=== PATIENT | male | born 1995 | race American Indian/Alaskan Native ===

== ENCOUNTER 2018-06-18 11:56 | Emergency (ER) | payer MEDICAID ==
[2018-06-18 12:06] VITALS: BP 144/90
[2018-06-18] MEDS ORDERED: MOTRIN PO ONE (12:50)
[2018-06-18] MEDS ORDERED: TESSALON PERLES PO ONE (12:50)
--- NOTE | 2018-06-18 12:52 | Emergency Department Report ---
- General Chief Complaint: Upper Respiratory Infection Stated Complaint: COUGHING RUNNY NOSE/CONGESTION Time Seen by Provider: 06/18/18 12:50 Source: patient Mode of arrival: Ambulatory Limitations: No Limitations - History of Present Illness Initial Comments: This is a 23-year-old male nontoxic, well nourished in appearance, no acute signs of distress presents to the ED with c/o of productive cough, rhinorrhea, nasal congestion x1 week. Patient describes productive cough as yellow mucus production. Patient denies any sick contact. Patient denies any recent travels , long car, recent hospital stays. Patient denies any calf pain or calf tenderness. Patient denies any chest pain, short of breath, fever, chills, nausea, vomiting, hemoptysis, numbness, tingling, headache or stiff neck. Patient denies any allergies or PMH. MD Complaint: cough, rhinorrhea, nasal congestion -: week(s) (1) Severity: mild Severity scale (0 -10): 0 Improves With: nothing Worsens With: nothing Associated Symptoms: rhinorrhea, nasal congestion, cough. denies: fever, chills , myalgias, diaphoresis, headache, sore throat, stiff neck, chest pain, shortness of breath, abdominal pain, nausea, vomiting, diarrhea, dysuria, rash, confusion, right sweats, weight loss, epistaxis, hoarseness, ear pain Treatments Prior to Arrival: none - Related Data Previous Rx's Medication Instructions Recorded Last Taken Type Azithromycin [Zithromax Z-BETH] 250 mg PO DAILY #1 pkg 12/15/14 Unknown Rx Loratadine [Claritin] 10 mg PO DAILY #30 tablet 12/15/14 Unknown Rx Promethazine /Codeine 5 ml PO Q6H PRN #150 udc 12/15/14 Unknown Rx [Phenergan/Codeine 6.25-10 mg/5 ml] predniSONE [Deltasone] 50 mg PO QDAY #5 tab 12/15/14 Unknown Rx Cyclobenzaprine [Flexeril] 10 mg PO TID PRN #15 tablet 06/03/16 Unknown Rx Cephalexin [Keflex] 500 mg PO BID #20 capsule 09/16/16 Unknown Rx Ibuprofen [Motrin 800 MG tab] 800 mg PO Q8HR PRN #15 tablet 09/16/16 Unknown Rx Azithromycin [Zithromax Z-BETH] 250 mg PO DAILY #6 tablet 06/18/18 Unknown Rx Benzonatate [Tessalon Perle] 100 mg PO Q8H PRN #20 capsule 06/18/18 Unknown Rx Ibuprofen [Motrin] 600 mg PO Q8H PRN #30 tablet 06/18/18 Unknown Rx Prednisone [predniSONE 10 mg 10 mg PO .TAPER #1 tab.ds.pk 06/18/18 Unknown Rx (6-Day Pack, 21 Tabs)] Allergies Allergy/AdvReac Type Severity Reaction Status Date / Time No Known Allergies Allergy Verified 06/18/18 12:04 ED Review of Systems ROS: Stated complaint: COUGHING RUNNY NOSE/CONGESTION Other details as noted in HPI Constitutional: denies: chills, fever Eyes: denies: eye pain, eye discharge, vision change ENT: denies: ear pain, throat pain Respiratory: cough. denies: shortness of breath, wheezing Cardiovascular: denies: chest pain, palpitations Endocrine: no symptoms reported Gastrointestinal: denies: abdominal pain, nausea, vomiting, diarrhea Genitourinary: denies: urgency, dysuria Musculoskeletal: denies: back pain, joint swelling, arthralgia Skin: denies: rash, lesions Neurological: denies: headache, weakness, paresthesias Psychiatric: denies: anxiety, depression Hematological/Lymphatic: denies: easy bleeding, easy bruising ED Past Medical Hx - Past Medical History Previous Medical History?: No - Surgical History Past Surgical History?: No - Social History Smoking Status: Never Smoker Substance Use Type: None - Medications Home Medications: Home Medications Medication Instructions Recorded Confirmed Last Taken Type Azithromycin [Zithromax Z-BETH] 250 mg PO DAILY #1 pkg 12/15/14 Unknown Rx Loratadine [Claritin] 10 mg PO DAILY #30 tablet 12/15/14 Unknown Rx Promethazine /Codeine 5 ml PO Q6H PRN #150 udc 12/15/14 Unknown Rx [Phenergan/Codeine 6.25-10 mg/5 ml] predniSONE [Deltasone] 50 mg PO QDAY #5 tab 12/15/14 Unknown Rx Cyclobenzaprine [Flexeril] 10 mg PO TID PRN #15 tablet 06/03/16 Unknown Rx Cephalexin [Keflex] 500 mg PO BID #20 capsule 09/16/16 Unknown Rx Ibuprofen [Motrin 800 MG tab] 800 mg PO Q8HR PRN #15 tablet 09/16/16 Unknown Rx Azithromycin [Zithromax Z-BETH] 250 mg PO DAILY #6 tablet 06/18/18 Unknown Rx Benzonatate [Tessalon Perle] 100 mg PO Q8H PRN #20 capsule 06/18/18 Unknown Rx Ibuprofen [Motrin] 600 mg PO Q8H PRN #30 tablet 06/18/18 Unknown Rx Prednisone [predniSONE 10 mg 10 mg PO .TAPER #1 tab.ds.pk 06/18/18 Unknown Rx (6-Day Pack, 21 Tabs)] ED Physical Exam - General Limitations: No Limitations General appearance: alert, in no apparent distress - Head Head exam: Present: atraumatic, normocephalic - Eye Eye exam: Present: normal appearance, PERRL, EOMI Pupils: Present: normal accommodation - ENT ENT exam: Present: normal exam, mucous membranes moist - Neck Neck exam: Present: normal inspection, full ROM. Absent: tenderness, meningismus, lymphadenopathy - Respiratory Respiratory exam: Present: normal lung sounds bilaterally. Absent: respiratory distress, wheezes, rales, rhonchi, stridor, chest wall tenderness, accessory muscle use, decreased breath sounds, prolonged expiratory - Cardiovascular Cardiovascular Exam: Present: regular rate, normal rhythm, normal heart sounds. Absent: bradycardia, tachycardia, irregular rhythm, systolic murmur, diastolic murmur, rubs, gallop - GI/Abdominal GI/Abdominal exam: Present: soft, normal bowel sounds. Absent: distended, tenderness, guarding, rebound, rigid, diminished bowel sounds - Rectal Rectal exam: Present: deferred - Extremities Exam Extremities exam: Present: normal inspection, full ROM, normal capillary refill. Absent: tenderness - Back Exam Back exam: Present: normal inspection, full ROM. Absent: tenderness, CVA tenderness (R), CVA tenderness (L), muscle spasm, paraspinal tenderness, vertebral tenderness, rash noted - Neurological Exam Neurological exam: Present: alert, oriented X3, normal gait - Psychiatric Psychiatric exam: Present: normal affect, normal mood - Skin Skin exam: Present: warm, dry, intact, normal color. Absent: rash ED Course Vital Signs 06/18/18 12:04 Temperature 97.9 F Pulse Rate 84 Respiratory 18 Rate Blood Pressure 144/90 O2 Sat by Pulse 100 Oximetry - Reevaluation(s) Reevaluation #1: 06/18/18 13:04 Patient is speaking in full sentences with no signs of distress noted. ED Medical Decision Making - Medical Decision Making This is a 23-year-old male that presents with bronchitis. Patient is stable and was examined by me. Chest x-ray has been obtained and dictated by radiologist with normal exam. Patient is notified of x-ray results with no questions noted. Due to patient having symptoms of upper respiratory infection and symptoms of influenza and worsening I will treat patient empirically with zpak. Patient was instructed to increase hydration, rest and take Motrin for fever episodes. Patient received motrin and tesslone perrls in the ED. Vitals stable. Patient is nonfebrile and normal heart rate. Patient was instructed Follow-up with a primary care doctor in 3-5 days or if symptoms worsen and continue return to emergency room as soon as possible. At time time of discharge, the patient does not seem toxic or ill in appearance. No acute signs of distress noted. Patient agrees to discharge treatment plan of care. No further questions noted by the patient. Critical care attestation.: If time is entered above; I have spent that time in minutes in the direct care of this critically ill patient, excluding procedure time. ED Disposition Clinical Impression: Acute bronchitis Qualifiers: Bronchitis organism: unspecified organism Qualified Code(s): J20.9 - Acute bronchitis, unspecified Disposition: DC-01 TO HOME OR SELFCARE Is pt being admited?: No Does the pt Need Aspirin: No Condition: Stable Instructions: Acute Bronchitis (ED) Additional Instructions: Follow-up with a primary care doctor in 3-5 days or if symptoms worsen and continue return to emergency room as soon as possible. Prescriptions: Azithromycin [Zithromax Z-BETH] 250 mg PO DAILY #6 tablet Benzonatate [Tessalon Perle] 100 mg PO Q8H PRN #20 capsule PRN Reason: Cough Ibuprofen [Motrin] 600 mg PO Q8H PRN #30 tablet PRN Reason: Pain Prednisone [predniSONE 10 mg (6-Day Pack, 21 Tabs)] 10 mg PO .TAPER #1 tab.ds.pk Referrals: PRIMARY CARE, [Primary Care Provider] - 3-5 Days SHELLI MEJIA MD [Staff Physician] - 3-5 Days [facility] [Outside] - 3-5 Days [facility] [Outside] - 3-5 Days Forms: Work/School Release Form(ED)
--- NOTE | 2018-06-18 15:20 | XRay Report ---
XRAY CHEST TWO VIEWS: 06/18/18 11:56:00 CLINICAL: Cough. COMPARISON: 12/15/14 FINDINGS: Normal heart and pulmonary vasculature. The lungs are normally expanded and clear.The bones and soft tissues are unremarkable. IMPRESSION: Normal chest.
== END 2018-06-18 15:41 | disposition home or self-care (01) ==
LOC: ED 11:56
DX: J20.9 Acute bronchitis, unspecified (principal)
CPT/HCPCS: 71046; 99283

== ENCOUNTER 2018-10-31 19:04 | Emergency (ER) | payer OTHER, MEDICAID ==
--- NOTE | 2018-10-31 23:39 | Emergency Department Report ---
ED ENT HPI - General Chief complaint: Upper Respiratory Infection Stated complaint: FLU LIKE SXS Time Seen by Provider: 10/31/18 23:27 Source: patient Mode of arrival: Ambulatory Limitations: No Limitations - History of Present Illness Initial comments: 23-year-old Armenian male to emergency Department for evaluation of a sore throat which was initially evaluated on [place]. He was started on amoxicillin which he has taken about 3 doses of reports the pain has not yet discontinue which is reasons for his return to the emergency department reports no worsening in symptoms. There is no dysphagia, but he does report some odynophagia. Does still have chills and coryza. No nausea, vomiting or hemoptysis. No hematemesis or hematochezia. No abdominal pain. No rashes appreciated. No ear pain, no tinnitus. MD complaint: sore throat Severity: moderate Quality: burning, aching Consistency: constant Improves with: none Worsens with: none Associated Symptoms: cough, sore throat, rhinorrhea. denies: gum swelling, hearing loss - Related Data Previous Rx's Medication Instructions Recorded Last Taken Type Azithromycin [Zithromax Z-BETH] 250 mg PO DAILY #1 pkg 12/15/14 Unknown Rx Loratadine [Claritin] 10 mg PO DAILY #30 tablet 12/15/14 Unknown Rx Promethazine /Codeine 5 ml PO Q6H PRN #150 udc 12/15/14 Unknown Rx [Phenergan/Codeine 6.25-10 mg/5 ml] predniSONE [Deltasone] 50 mg PO QDAY #5 tab 12/15/14 Unknown Rx Cyclobenzaprine [Flexeril] 10 mg PO TID PRN #15 tablet 06/03/16 Unknown Rx Cephalexin [Keflex] 500 mg PO BID #20 capsule 09/16/16 Unknown Rx Ibuprofen [Motrin 800 MG tab] 800 mg PO Q8HR PRN #15 tablet 09/16/16 Unknown Rx Azithromycin [Zithromax Z-BETH] 250 mg PO DAILY #6 tablet 06/18/18 Unknown Rx Benzonatate [Tessalon Perle] 100 mg PO Q8H PRN #20 capsule 06/18/18 Unknown Rx Ibuprofen [Motrin] 600 mg PO Q8H PRN #30 tablet 06/18/18 Unknown Rx Prednisone [predniSONE 10 mg 10 mg PO .TAPER #1 tab.ds.pk 06/18/18 Unknown Rx (6-Day Pack, 21 Tabs)] Methocarbamol [Robaxin-750] 750 mg PO Q6HR PRN #20 tablet 10/04/18 Unknown Rx Naproxen [Naprosyn] 500 mg PO BID PRN #20 tablet 10/04/18 Unknown Rx Amoxicillin [Amoxicillin TAB] 875 mg PO BID #20 tablet 10/29/18 Unknown Rx Chlorhexidine Mouthwash [Peridex] 15 ml MM BID #1 bottle 10/29/18 Unknown Rx Ibuprofen [Motrin] 600 mg PO Q8H PRN #20 tablet 10/29/18 Unknown Rx Desloratadine/Pseudoephedrine 1 each PO BID #10 tbmp.12hr 10/31/18 Unknown Rx [Clarinex-D 12 Hour Tablet] guaiFENesin/CODEINE [Robitussin AC] 5 ml PO Q6H PRN #120 ml 10/31/18 Unknown Rx Allergies Allergy/AdvReac Type Severity Reaction Status Date / Time No Known Allergies Allergy Verified 06/18/18 12:04 ED Dental HPI - General Chief complaint: Upper Respiratory Infection Stated complaint: FLU LIKE SXS Time Seen by Provider: 10/31/18 23:27 Source: patient Mode of arrival: Ambulatory Limitations: No Limitations - Related Data Previous Rx's Medication Instructions Recorded Last Taken Type Azithromycin [Zithromax Z-BETH] 250 mg PO DAILY #1 pkg 12/15/14 Unknown Rx Loratadine [Claritin] 10 mg PO DAILY #30 tablet 12/15/14 Unknown Rx Promethazine /Codeine 5 ml PO Q6H PRN #150 udc 12/15/14 Unknown Rx [Phenergan/Codeine 6.25-10 mg/5 ml] predniSONE [Deltasone] 50 mg PO QDAY #5 tab 12/15/14 Unknown Rx Cyclobenzaprine [Flexeril] 10 mg PO TID PRN #15 tablet 06/03/16 Unknown Rx Cephalexin [Keflex] 500 mg PO BID #20 capsule 09/16/16 Unknown Rx Ibuprofen [Motrin 800 MG tab] 800 mg PO Q8HR PRN #15 tablet 09/16/16 Unknown Rx Azithromycin [Zithromax Z-BETH] 250 mg PO DAILY #6 tablet 06/18/18 Unknown Rx Benzonatate [Tessalon Perle] 100 mg PO Q8H PRN #20 capsule 06/18/18 Unknown Rx Ibuprofen [Motrin] 600 mg PO Q8H PRN #30 tablet 06/18/18 Unknown Rx Prednisone [predniSONE 10 mg 10 mg PO .TAPER #1 tab.ds.pk 06/18/18 Unknown Rx (6-Day Pack, 21 Tabs)] Methocarbamol [Robaxin-750] 750 mg PO Q6HR PRN #20 tablet 10/04/18 Unknown Rx Naproxen [Naprosyn] 500 mg PO BID PRN #20 tablet 10/04/18 Unknown Rx Amoxicillin [Amoxicillin TAB] 875 mg PO BID #20 tablet 10/29/18 Unknown Rx Chlorhexidine Mouthwash [Peridex] 15 ml MM BID #1 bottle 10/29/18 Unknown Rx Ibuprofen [Motrin] 600 mg PO Q8H PRN #20 tablet 10/29/18 Unknown Rx Desloratadine/Pseudoephedrine 1 each PO BID #10 tbmp.12hr 10/31/18 Unknown Rx [Clarinex-D 12 Hour Tablet] guaiFENesin/CODEINE [Robitussin AC] 5 ml PO Q6H PRN #120 ml 10/31/18 Unknown Rx Allergies Allergy/AdvReac Type Severity Reaction Status Date / Time No Known Allergies Allergy Verified 06/18/18 12:04 ED Review of Systems ROS: Stated complaint: FLU LIKE SXS Other details as noted in HPI Constitutional: denies: chills, fever Eyes: denies: eye pain, eye discharge, vision change ENT: throat pain. denies: ear pain Respiratory: denies: cough, shortness of breath, wheezing Cardiovascular: denies: chest pain, palpitations Endocrine: no symptoms reported Gastrointestinal: denies: abdominal pain, nausea, diarrhea Genitourinary: denies: urgency, dysuria Musculoskeletal: denies: back pain, joint swelling, arthralgia Skin: denies: rash, lesions Neurological: denies: headache, weakness, paresthesias Psychiatric: denies: anxiety, depression Hematological/Lymphatic: denies: easy bleeding, easy bruising ED Past Medical Hx - Past Medical History Previous Medical History?: No - Social History Smoking Status: Never Smoker Substance Use Type: None - Medications Home Medications: Home Medications Medication Instructions Recorded Confirmed Last Taken Type Azithromycin [Zithromax Z-BETH] 250 mg PO DAILY #1 pkg 12/15/14 Unknown Rx Loratadine [Claritin] 10 mg PO DAILY #30 tablet 12/15/14 Unknown Rx Promethazine /Codeine 5 ml PO Q6H PRN #150 udc 12/15/14 Unknown Rx [Phenergan/Codeine 6.25-10 mg/5 ml] predniSONE [Deltasone] 50 mg PO QDAY #5 tab 12/15/14 Unknown Rx Cyclobenzaprine [Flexeril] 10 mg PO TID PRN #15 tablet 06/03/16 Unknown Rx Cephalexin [Keflex] 500 mg PO BID #20 capsule 09/16/16 Unknown Rx Ibuprofen [Motrin 800 MG tab] 800 mg PO Q8HR PRN #15 tablet 09/16/16 Unknown Rx Azithromycin [Zithromax Z-BETH] 250 mg PO DAILY #6 tablet 06/18/18 Unknown Rx Benzonatate [Tessalon Perle] 100 mg PO Q8H PRN #20 capsule 06/18/18 Unknown Rx Ibuprofen [Motrin] 600 mg PO Q8H PRN #30 tablet 06/18/18 Unknown Rx Prednisone [predniSONE 10 mg 10 mg PO .TAPER #1 tab.ds.pk 06/18/18 Unknown Rx (6-Day Pack, 21 Tabs)] Methocarbamol [Robaxin-750] 750 mg PO Q6HR PRN #20 tablet 10/04/18 Unknown Rx Naproxen [Naprosyn] 500 mg PO BID PRN #20 tablet 10/04/18 Unknown Rx Amoxicillin [Amoxicillin TAB] 875 mg PO BID #20 tablet 10/29/18 Unknown Rx Chlorhexidine Mouthwash [Peridex] 15 ml MM BID #1 bottle 10/29/18 Unknown Rx Ibuprofen [Motrin] 600 mg PO Q8H PRN #20 tablet 10/29/18 Unknown Rx Desloratadine/Pseudoephedrine 1 each PO BID #10 tbmp.12hr 10/31/18 Unknown Rx [Clarinex-D 12 Hour Tablet] guaiFENesin/CODEINE [Robitussin AC] 5 ml PO Q6H PRN #120 ml 10/31/18 Unknown Rx ED Physical Exam - General Limitations: No Limitations General appearance: alert, in no apparent distress - Head Head exam: Present: atraumatic, normocephalic - Eye Eye exam: Present: normal appearance, PERRL, other - ENT ENT exam: Present: mucous membranes moist, other (exes erythematous with some swelling to the right tonsils and there is notable exudate on the right side. No evidence of any abscesses appreciated. Tongue and uvula are midline. Voice is normal. No drooling.) - Neck Neck exam: Present: normal inspection. Absent: tenderness - Respiratory Respiratory exam: Present: normal lung sounds bilaterally. Absent: respiratory distress, wheezes, rales, rhonchi, chest wall tenderness, accessory muscle use, decreased breath sounds, prolonged expiratory - Cardiovascular Cardiovascular Exam: Present: regular rate, normal rhythm. Absent: systolic murmur, diastolic murmur, rubs, gallop - GI/Abdominal GI/Abdominal exam: Present: soft, normal bowel sounds - Rectal Rectal exam: Present: deferred - Extremities Exam Extremities exam: Present: normal inspection - Back Exam Back exam: Present: normal inspection - Neurological Exam Neurological exam: Present: alert, oriented X3 - Psychiatric Psychiatric exam: Present: normal affect, normal mood - Skin Skin exam: Present: warm, dry, intact, normal color. Absent: rash ED Course Vital Signs 10/31/18 19:16 Temperature 98.4 F Pulse Rate 92 H Respiratory 18 Rate Blood Pressure 165/86 O2 Sat by Pulse 98 Oximetry ED Medical Decision Making - Medical Decision Making I discussed with patient the normal progression of the disease processes in the proper utilization of antibodies. I offered him a Bicillin injection, which she refused. He requested to have just medications to help with some of the symptoms he was experiencing. He has been taking the amoxicillin only 3 doses and used oral mouth rinse once or twice as well. - Differential Diagnosis mono, strep pharyngitis, malignancy, reflux, viral syndrome Critical care attestation.: If time is entered above; I have spent that time in minutes in the direct care of this critically ill patient, excluding procedure time. ED Disposition Clinical Impression: Pharyngitis Disposition: DC-01 TO HOME OR SELFCARE Is pt being admited?: No Does the pt Need Aspirin: No Condition: Stable Instructions: Pharyngitis (ED), Tonsillitis (ED) Prescriptions: Desloratadine/Pseudoephedrine [Clarinex-D 12 Hour Tablet] 1 each PO BID #10 tbmp.12hr guaiFENesin/CODEINE [Robitussin AC] 5 ml PO Q6H PRN #120 ml PRN Reason: Cough Referrals: [facility] [Provider Group] - 3-5 Days
[2018-11-01 00:43] VITALS: BP 145/78
== END 2018-11-01 00:42 | disposition home or self-care (01) ==
LOC: ED 19:04
DX: J02.9 Acute pharyngitis, unspecified (principal)
CPT/HCPCS: 99282

== ENCOUNTER 2021-09-06 16:08 | Emergency (ER) | payer MEDICAID, OTHER ==
[2021-09-06 19:54] LABS: Hematocrit 46.5 % (35.5-45.6); Hemoglobin 15.1 gm/dl (11.8-15.2); Mean Corpuscular HGB Conc 32 % (32-34); Mean Corpuscular Volume 86 fl (84-94); Platelet Count 194 K/mm3 (140-440); Red Blood Count 5.44 M/mm3 (3.65-5.03); Red Cell Distribution Width 14.2 % (13.2-15.2)
[2021-09-06 20:07] LABS: Alanine Aminotransferase 30 units/L (7-56); Albumin 4.1 g/dL (3.9-5); BUN/Creatinine Ratio 10; Blood Urea Nitrogen 8 mg/dL (9-20); Calcium 8.7 mg/dL (8.4-10.2); Hemolysis Index 14
--- NOTE | 2021-09-06 20:55 | Emergency Department Report ---
ED N/V/D HPI - General Chief complaint: Nausea/Vomiting/Diarrhea Stated complaint: POSSIBLE STOMACH VIRUS Time Seen by Provider: 09/06/21 18:51 Source: patient Mode of arrival: Ambulatory Limitations: No Limitations - History of Present Illness Associated Abdominal Pain: No Radiation: none Severity: mild Quality: dull Consistency: constant Improves with: none Worsens with: none Context: possible food poisoning Associated Symptoms: nausea/vomiting. denies: cough, diaphoresis, loss of appetite, syncope, weakness - Related Data Previous Rx's Medication Instructions Recorded Last Taken Type Azithromycin [Zithromax Z-BETH] 250 mg PO DAILY #1 pkg 12/15/14 Unknown Rx Loratadine (Nf) [Claritin] 10 mg PO DAILY #30 tablet 12/15/14 Unknown Rx Promethazine /Codeine 5 ml PO Q6H PRN #150 udc 12/15/14 Unknown Rx [Phenergan/Codeine 6.25-10 mg/5 ml] predniSONE [Deltasone] 50 mg PO QDAY #5 tab 12/15/14 Unknown Rx Cyclobenzaprine [Flexeril] 10 mg PO TID PRN #15 tablet 06/03/16 Unknown Rx Ibuprofen [Motrin 800 MG tab] 800 mg PO Q8HR PRN #15 tablet 09/16/16 Unknown Rx cephALEXin [Keflex] 500 mg PO BID #20 capsule 09/16/16 Unknown Rx Azithromycin [Zithromax Z-BETH] 250 mg PO DAILY #6 tablet 06/18/18 Unknown Rx Benzonatate [Tessalon Perle] 100 mg PO Q8H PRN #20 capsule 06/18/18 Unknown Rx Ibuprofen [Motrin] 600 mg PO Q8H PRN #30 tablet 06/18/18 Unknown Rx Prednisone [predniSONE 10 mg 10 mg PO .TAPER #1 tab.ds.pk 06/18/18 Unknown Rx (6-Day Pack, 21 Tabs)] Naproxen [Naprosyn] 500 mg PO BID PRN #20 tablet 10/04/18 Unknown Rx methocarbamoL [Robaxin-750] 750 mg PO Q6HR PRN #20 tablet 10/04/18 Unknown Rx Amoxicillin [Amoxicillin TAB] 875 mg PO BID #20 tablet 10/29/18 Unknown Rx Chlorhexidine Mouthwash [Peridex] 15 ml MM BID #1 bottle 10/29/18 Unknown Rx Ibuprofen [Motrin] 600 mg PO Q8H PRN #20 tablet 10/29/18 Unknown Rx Desloratadine/Pseudoephedrine 1 each PO BID #10 tbmp.12hr 10/31/18 Unknown Rx [Clarinex-D 12 Hour Tablet] guaiFENesin/CODEINE [Robitussin AC] 5 ml PO Q6H PRN #120 ml 10/31/18 Unknown Rx Ciprofloxacin HCl 500 mg PO BID #10 tablet 09/06/21 Unknown Rx Diphenoxylate/Atropine [Lomotil] 1 tab PO Q4H PRN #20 tablet 09/06/21 Unknown Rx Ondansetron [Zofran ODT TAB] 8 mg PO Q12HR #14 tab.rapdis 09/06/21 Unknown Rx Allergies Allergy/AdvReac Type Severity Reaction Status Date / Time No Known Allergies Allergy Verified 06/18/18 12:04 ED Review of Systems ROS: Stated complaint: POSSIBLE STOMACH VIRUS Other details as noted in HPI Comment: All other systems reviewed and negative ED Past Medical Hx - Past Medical History Previous Medical History?: No - Surgical History Past Surgical History?: No - Social History Smoking Status: Never Smoker Substance Use Type: None - Medications Home Medications: Home Medications Medication Instructions Recorded Confirmed Last Taken Type Azithromycin [Zithromax Z-EBTH] 250 mg PO DAILY #1 pkg 12/15/14 Unknown Rx Loratadine (Nf) [Claritin] 10 mg PO DAILY #30 tablet 12/15/14 Unknown Rx Promethazine /Codeine 5 ml PO Q6H PRN #150 udc 12/15/14 Unknown Rx [Phenergan/Codeine 6.25-10 mg/5 ml] predniSONE [Deltasone] 50 mg PO QDAY #5 tab 12/15/14 Unknown Rx Cyclobenzaprine [Flexeril] 10 mg PO TID PRN #15 tablet 06/03/16 Unknown Rx Ibuprofen [Motrin 800 MG tab] 800 mg PO Q8HR PRN #15 tablet 09/16/16 Unknown Rx cephALEXin [Keflex] 500 mg PO BID #20 capsule 09/16/16 Unknown Rx Azithromycin [Zithromax Z-BETH] 250 mg PO DAILY #6 tablet 06/18/18 Unknown Rx Benzonatate [Tessalon Perle] 100 mg PO Q8H PRN #20 capsule 06/18/18 Unknown Rx Ibuprofen [Motrin] 600 mg PO Q8H PRN #30 tablet 06/18/18 Unknown Rx Prednisone [predniSONE 10 mg 10 mg PO .TAPER #1 tab.ds.pk 06/18/18 Unknown Rx (6-Day Pack, 21 Tabs)] Naproxen [Naprosyn] 500 mg PO BID PRN #20 tablet 10/04/18 Unknown Rx methocarbamoL [Robaxin-750] 750 mg PO Q6HR PRN #20 tablet 10/04/18 Unknown Rx Amoxicillin [Amoxicillin TAB] 875 mg PO BID #20 tablet 10/29/18 Unknown Rx Chlorhexidine Mouthwash [Peridex] 15 ml MM BID #1 bottle 10/29/18 Unknown Rx Ibuprofen [Motrin] 600 mg PO Q8H PRN #20 tablet 10/29/18 Unknown Rx Desloratadine/Pseudoephedrine 1 each PO BID #10 tbmp.12hr 10/31/18 Unknown Rx [Clarinex-D 12 Hour Tablet] guaiFENesin/CODEINE [Robitussin AC] 5 ml PO Q6H PRN #120 ml 10/31/18 Unknown Rx Ciprofloxacin HCl 500 mg PO BID #10 tablet 09/06/21 Unknown Rx Diphenoxylate/Atropine [Lomotil] 1 tab PO Q4H PRN #20 tablet 09/06/21 Unknown Rx Ondansetron [Zofran ODT TAB] 8 mg PO Q12HR #14 tab.rapdis 09/06/21 Unknown Rx ED Physical Exam - General Limitations: No Limitations General appearance: alert, in no apparent distress - Head Head exam: Present: atraumatic, normocephalic - Eye Eye exam: Present: normal appearance, PERRL, EOMI, scleral icterus Pupils: Present: normal accommodation - ENT ENT exam: Present: normal exam, mucous membranes moist - Neck Neck exam: Present: normal inspection, full ROM - Respiratory Respiratory exam: Present: normal lung sounds bilaterally. Absent: respiratory distress - Cardiovascular Cardiovascular Exam: Present: regular rate, normal rhythm. Absent: systolic murmur, diastolic murmur, rubs, gallop - GI/Abdominal GI/Abdominal exam: Present: soft, normal bowel sounds - Rectal Rectal exam: Present: deferred - Extremities Exam Extremities exam: Present: normal inspection, normal capillary refill - Back Exam Back exam: Present: normal inspection. Absent: CVA tenderness (R), CVA tenderne ss (L) - Neurological Exam Neurological exam: Present: alert, oriented X3, CN II-XII intact, normal gait - Psychiatric Psychiatric exam: Present: normal affect, normal mood. Absent: anxious, flat affect - Skin Skin exam: Present: warm, dry, intact, normal color. Absent: rash, cyanosis, diaphoretic ED Course Vital Signs 09/06/21 18:41 Temperature 98.5 F Pulse Rate 80 Respiratory 18 Rate Blood Pressure 121/85 O2 Sat by Pulse 100 Oximetry ED Medical Decision Making - Lab Data Result diagrams: 09/06/21 19:22 09/06/21 19:22 - Medical Decision Making Patient presents to the emergency department with nausea, vomiting, diarrhea, differential diagnosis includes possible acute gastroenteritis. Abdominal examination without peritoneal signs. Currently patient is euvolemic without evidence of dehydration. No evidence of surgical abdomen or other acute medical emergency including bowel obstruction, viscus perforation, vascular catastrophe, appendicitis, cholecystitis at this time. Presentation not consistent with other acute emergent causes of vomiting and diarrhea at this time. No indication for abdominal imaging Vital signs remained stable throughout the course the emerge department no no no vomiting or diarrhea during the emergency room visit Plan supportive care, oral rehydration, antiemetics and reassess Critical care attestation.: If time is entered above; I have spent that time in minutes in the direct care of this critically ill patient, excluding procedure time. ED Disposition Clinical Impression: Vomiting and diarrhea Disposition: HOME / SELF CARE / HOMELESS Is pt being admited?: No Does the pt Need Aspirin: No Condition: Stable Instructions: Diarrhea, Adult, Food Choices to Help Relieve Diarrhea, Adult, Nausea and Vomiting, Adult, [id number], Nausea and Vomiting, Adult, Preventing Gastrointestinal Problems During Exercise, Probiotics Additional Instructions: you have been evaluated emergency department today for nausea vomiting and diarrhea. Your evaluation did not show evidence of any medical conditions requiring emergent intervention at this time. Your lipase was it was elevated but not to a significant degree significant pancreatitis does not appear to be present at this time please drink plenty of fluids. Vital signs were stable at the time of check-in and remained stable throughout your hospital visit Please schedule an appointment with your primary care physician. Return to emergency department if you experience worsening uncontrolled pain, fevers of 100.4 or greater, recurrent vomiting, inability to tolerate food or fluids by mouth, bloody stools or vomit, black tarry stools, or any other concerning symptoms. Prescriptions: Ciprofloxacin HCl 500 mg PO BID #10 tablet Diphenoxylate/Atropine [Lomotil] 1 tab PO Q4H PRN #20 tablet PRN Reason: diarrhea Ondansetron [Zofran ODT TAB] 8 mg PO Q12HR #14 tab.[email or web address] Referrals: [facility] [Provider Group] - 3-5 Days ОЛЕГ OLVERA MD [Staff Physician] - 3-5 Days
[2021-09-06 22:09] LABS: Total Cells Counted 100
[2021-09-06 22:11] LABS: Platelet Estimate Consistent w Auto; RBC Morphology Normal
[2021-09-06 22:18] VITALS: BP 137/89
== END 2021-09-06 22:20 | disposition home or self-care (01) ==
LOC: ED 16:08
DX: R11.2 Nausea with vomiting, unspecified (principal); R19.7 Diarrhea, unspecified
CPT/HCPCS: 36415; 80053; 83690; 85007; 85025; 99283